=== PATIENT | female | born 1965 | race Caucasian/White ===

== ENCOUNTER 2018-03-24 21:34 | Emergency (ER) | payer MEDICAID ==
[~2018-03-24] VITALS: Ht 167.6 cm; Wt 90.7 kg
--- NOTE | 2018-03-24 21:34 | NUR ---
BBDAUGHTER FROM HOME C/C LEFT FOREHEAD LACERATION, L EYE ORBIT SWELLING +DIZZY +NAUSEA -KO. VSS NO ACUTE DISTRESS NOTED AT THIS TIME. SKIN INTEGRITY COMPROMISED BY GLF BY NOT SEEING A STEP WHEN WALKING HOME. PT IS ALERT AND ORIENTED X4 THAIS TO MAKE NEEDS KNOWN. WILL CONTINUE TO MONITOR FOR ANY CHANGES DURING THE SHIFT.
--- NOTE | 2018-03-24 21:35 | NUR ---
ER MD LA AT BEDSIDE
--- NOTE | 2018-03-24 23:15 | NUR ---
Pt tp CT via wheelchair.
[2018-03-24] MEDS ORDERED: TDAP [DIPH/PERTUSSIS/TET] 0.5 ML VIAL IM ONE ×2 (23:30→23:39)
[2018-03-25 01:17] VITALS: BP 132/90
[2018-03-25] MEDS ORDERED: BACI/NEOM/POLY B OINT PKT 1 UDPKT PACKET TP ONE (01:30)
== END 2018-03-25 01:17 | disposition home or self-care (01) ==
LOC: ER 21:35
DX: S00.212A Abrasion of left eyelid and periocular area, initial encounter (principal); M54.2 Cervicalgia; E03.9 Hypothyroidism, unspecified; W01.0XXA Fall on same level from slipping, tripping and stumbling without subsequent striking against object, initial encounter; Y93.89 Activity, other specified; Y92.89 Other specified places as the place of occurrence of the external cause; Y99.8 Other external cause status
CPT/HCPCS: 70450; 70486; 72125; 90471; 90715; 99284; A4606; A6402; Z7610